=== PATIENT | male | born 1990 | race Caucasian/White ===

== ENCOUNTER 2016-12-16 14:43 | Emergency (ER) | payer OTHER ==
[2016-12-16 15:03] VITALS: BP 154/81
[2016-12-16] MEDS ORDERED: Amoxicillin/Clavulanate TAB* 875 MG PO ONE (16:06)
--- NOTE | 2016-12-16 16:09 | ED ---
Laceration/Wound HPI - HPI Summary HPI Summary: 26M presents with dog bite to left thumb. He was trying to grab something from dog mouth and it bite him. His tetanus was in 2010. He has full ROM of finger. laceration happened today and bleeding is controlled. dog had his rabies. He is not on any blood thinners. - History of Current Complaint Stated Complaint: DOG BITE TO HAND Time Seen by Provider: 12/16/16 15:06 Pain Intensity: 7 - Allergy/Home Medications Allergies/Adverse Reactions: Allergies Allergy/AdvReac Type Severity Reaction Status Date / Time Bee Venom Allergy Anaphylatic Verified 12/16/16 15:01 Shock PMH/Surg Hx/FS Hx/Imm Hx Endocrine/Hematology History: Denies: Hx Diabetes, Hx Thyroid Disease Cardiovascular History: Denies: Hx Hypertension Respiratory History: Denies: Hx Asthma, Hx Chronic Obstructive Pulmonary Disease (COPD) GI History: Denies: Hx Ulcer - Surgical History Surgery Procedure, Year, and Place: appy,t&a Infectious Disease History: No Infectious Disease History: Denies: Hx Hepatitis, Hx Human Immunodeficiency Virus (HIV), Traveled Outside the in Last 30 Days - Family History Known Family History: Positive: Hypertension - Social History Alcohol Use: Occasionally Substance Use Type: Reports: Marijuana Smoking Status (MU): Never Smoked Tobacco Review of Systems Negative: Fever Negative: Chest Pain Negative: Shortness Of Breath Positive: Other - laceration to left thumb All Other Systems Reviewed And Are Negative: Yes Physical Exam Triage Information Reviewed: Yes Vital Signs On Initial Exam: Initial Vitals Temp Pulse Resp BP Pulse Ox 98.6 F 78 16 154/81 99 12/16/16 15:01 12/16/16 15:01 12/16/16 15:01 12/16/16 15:01 12/16/16 15:01 Vital Signs Reviewed: Yes Appearance: Positive: Well-Appearing Skin: Positive: Warm, Dry, Other - 2cm laceration to palmar MCP joint of left thumb Head/Face: Positive: Normal Head/Face Inspection Eyes: Positive: Normal, Conjunctiva Clear Respiratory/Lung Sounds: Positive: Clear to Auscultation, Breath Sounds Present Cardiovascular: Positive: Normal, RRR Musculoskeletal: Positive: Strength/ROM Intact - left thumb, Other - good pulses , capillary refill < 2 secs, Procedures - Laceration/Wound Repair 1 Location: Other - left thumb Description: Stellate Anesthesia: Local, 1.0% Length, Depth and Shape: 2cm Betadine Prep?: Yes Irrigated w/ Saline (ccs): 250 Closure: Single Layer Suture Type: Prolene - 4-0 Number of Sutures: 3 Diagnostics - Vital Signs Vital Signs Temp Pulse Resp BP Pulse Ox 12/16/16 15:01 98.6 F 78 16 154/81 99 - Laboratory Lab Statement: Any lab studies that have been ordered have been reviewed, and results considered in the medical decision making process. Laceration Repair Course/Dx - Course Course Of Treatment: 26M presents with laceration from dog on left thumb. rabies and tetanus up to date. placed 3 sutures after extensive cleaning of area and placed in splint due to location. gave augmentin for ppx due to dog bite. patient understands and agrees with plan - Differential Dx Differental Diagnoses: Abrasion, Avulsion - Clinical Impression Provider Diagnoses: Laceration of left thumb, Dog bite Discharge - Discharge Plan Condition: Good Disposition: HOME Prescriptions: Amoxicillin/Clavulanate TAB* [Augmentin TAB 875*] 875 mg PO BID #9 tab Patient Education Materials: Care For Your St[facility] (ED) Forms: *Work Release Referrals: Nette Traylor MD [Primary Care Provider] - Additional Instructions: Take antibiotic twice a day for 5 days, first dose given in ED Keep area in splint, change dressing once a day for at least two days Keep area clean and dry for 48 hours Take Tylenol or ibuprofen for pain every 6 hours Return to ED or primary for suture removal in 10-14 days Return to ED if develop signs of infection such as fever, spreading redness, or pus formation
== END 2016-12-16 16:22 | disposition home or self-care (01) ==
LOC: ED 14:43
DX: S61.052A Open bite of left thumb without damage to nail, initial encounter (principal); W54.0XXA Bitten by dog, initial encounter; Y92.9 Unspecified place or not applicable
CPT/HCPCS: 99281; A9270-GY